=== PATIENT | male | born 1990 | race Caucasian/White ===

== ENCOUNTER 2019-11-01 10:53 | Inpatient (IN) | payer MEDICAID ==
[2019-11-01] MEDS ORDERED: Furosemide 40 MG/4 ML VIAL IV ONE (11:05)
[2019-11-01] MEDS ORDERED: Aspirin 81 MG Tab.Chew PO ONE (11:08)
[2019-11-01] MEDS ORDERED: Albuterol/Ipratropium 3.0-0.5 MG/3 ML Neb Soln NEB ONE (11:14)
[2019-11-01] MEDS ORDERED: Nitroglycerin 0.4 MG Tab.SL SL ONE (11:22)
[2019-11-01] MEDS ORDERED: Albuterol 0.083% 2.5 MG/3 ML Neb Soln NEB ONE (11:42)
--- NOTE | 2019-11-01 11:42 | EDM.PDOC ---
ED HPI GENERAL MEDICAL PROBLEM - General Stated Complaint: SWELLING AND CHEST PAIN Time Seen by Provider: 11/01/19 11:00 Source of Information: Reports: Patient History Limitations: Reports: No Limitations - History of Present Illness INITIAL COMMENTS - FREE TEXT/NARRATIVE: Pt. presents to ER from clinic. He was sent here due to severity of symptoms. Pt. complains of increased peripheral edema and shortness of breath. He also complains of chest heaviness. He states that he had been experiencing the symptoms for about a month. He has a history of poorly controlled hypertension, alcohol abuse, asthma, and congestive heart failure. He states that he has not been experiencing any fever or chills. He states that he has been taking his lisinopril for his hypertension, but not the amlodipine because it causes his legs to swell. He was also prescribed lasix to take as needed for weight gain, edema or shortness of breath, but states that he has not taken this. Also, he states that he has been out of his inhalers for his asthma and has not been taking them either. Pt. had a echocardiogram ([facility]) on 08/16/2018 which showed concentric LVH and grade 1 left ventricular dysfunction with EF of 55%. He states that he drinks half of a 1.75 of hard alcohol a day, and states that he has DTs if he does not drink. Onset Date: 10/11/19 Location: Reports: Chest, Generalized Severity: Moderate Associated Symptoms: Reports: Chest Pain, Shortness of Breath. Denies: Diaphoresis, Fever/Chills Chest Pain Score (Numeric/FACES): 3 - Related Data Allergies Allergy/AdvReac Type Severity Reaction Status Date / Time No Known Allergies Allergy Verified 11/01/19 11:02 ED ROS GENERAL - Review of Systems Review Of Systems: See Below Constitutional: Reports: Fatigue. Denies: Fever, Chills HEENT: Reports: No Symptoms Respiratory: Reports: Shortness of Breath. Denies: Cough Cardiovascular: Reports: Chest Pain, Dyspnea on Exertion, Edema, Orthopnea. Denies: Palpitations Endocrine: Reports: No Symptoms GI/Abdominal: Reports: No Symptoms : Reports: No Symptoms Musculoskeletal: Reports: No Symptoms Skin: Reports: No Symptoms Neurological: Reports: No Symptoms Psychiatric: Reports: No Symptoms Hematologic/Lymphatic: Reports: No Symptoms Immunologic: Reports: No Symptoms ED EXAM, GENERAL - Physical Exam Exam: See Below Exam Limited By: No Limitations General Appearance: Alert, WD/WN, No Apparent Distress Eye Exam: Bilateral Eye: EOMI, PERRL Throat/Mouth: Normal Inspection, Normal Lips, Normal Teeth, Normal Gums, Normal Oropharynx, Normal Voice, No Airway Compromise Head: Atraumatic, Normocephalic Respiratory/Chest: Decreased Breath Sounds, Crackles, Wheezing Cardiovascular: Normal Peripheral Pulses, No Rub Course - Vital Signs Last Recorded V/S: Last Vital Signs Temp 37.0 C 11/01/19 11:00 Pulse 122 H 11/01/19 11:00 Resp 24 H 11/01/19 11:00 BP 165/100 H 11/01/19 11:59 Pulse Ox 95 11/01/19 11:00 - Orders/Labs/Meds Orders: Active Orders 24 hr Category Date Time Status Patient Status [ADT] Routine ADT 11/01/19 12:31 Ordered EKG Documentation Completion [RC] STAT Care 11/01/19 11:02 Active RT Aerosol Therapy [RC] ASDIRECTED Care 11/01/19 11:14 Active RT Aerosol Therapy [RC] ASDIRECTED Care 11/01/19 11:42 Active CULTURE BLOOD [BC] Stat Lab 11/01/19 11:12 Received CULTURE BLOOD [BC] Stat Lab 11/01/19 11:18 Received LORazepam [Ativan] Med 11/01/19 12:33 Once 1 mg IVPUSH STAT ONE Sodium Chloride 0.9% [Saline Flush] Med 11/01/19 11:02 Active 10 ml FLUSH ASDIRECTED PRN Blood Culture x2 Reflex Set [OM.PC] Stat Oth 11/01/19 11:03 Ordered Peripheral IV Insertion Adult [OM.PC] Routine Oth 11/01/19 11:03 Ordered Medication Orders Sodium Chloride (Saline Flush) 10 ml FLUSH ASDIRECTED PRN PRN Reason: Keep Vein Open Labs: Laboratory Tests 11/01/19 11/01/19 11/01/19 Range/Units 11:09 11:09 11:09 WBC 7.9 (4.0-10.0) x10^3/uL RBC 5.58 (4.5-6.0) x10^6/uL Hgb 16.1 (14.0-18.0) g/dL Hct 48.6 (40.0-52.0) % MCV 87.1 (78.0-93.0) fL MCH 28.9 (26.0-32.0) pg MCHC 33.1 (32.0-36.0) g/dL RDW Coeff of Kb 15.6 H (10.0-15.0) % Plt Count 215 (130-400) x10^3/uL Neut % (Auto) 65.3 (50.0-80.0) % Lymph % (Auto) 26.7 (25.0-50.0) % [place] % (Auto) 5.5 (2.0-11.0) % Eos % (Auto) 2.2 (0.0-4.0) % Baso % (Auto) 0.3 (0.2-1.2) % PT 10.3 (10.0-12.8) SEC INR 0.9 L (2.0-3.5) D-Dimer, Quantitative (<=0.58) mg/LFEU Sodium 135 L (136-145) mmol/L Potassium 4.3 (3.5-5.1) mmol/L Chloride 99 (98-107) mmol/L Carbon Dioxide 25 (21-32) mmol/L Anion Gap 15.3 (10-20) mmol/L BUN 9 (7-18) mg/dL Creatinine 1.0 (0.70-1.30) mg/dL Est Cr Clr Drug Dosing TNP Estimated GFR (MDRD) > 60 Glucose 98 (74-106) mg/dL Lactic Acid (0.4-2.0) mmol/L Calcium 8.8 (8.5-10.1) mg/dL Corrected Calcium 9.12 (8.5-10.1) mg/dL Magnesium 1.7 L (1.8-2.4) mg/dL Total Bilirubin 0.6 (0.2-1.0) mg/dL AST 65 H (15-37) U/L ALT 78 H (16-63) U/L Alkaline Phosphatase 106 (46-116) U/L Troponin I 0.051 (<=0.056) ng/mL C-Reactive Protein 1.5 H (<=0.9) mg/dL NT-Pro-B Natriuret Pep 111 (<=125) pg/mL Total Protein 8.3 H (6.4-8.2) g/dL Albumin 3.6 (3.4-5.0) g/dL Globulin 4.7 Albumin/Globulin Ratio 0.77 Urine Color (YELLOW) Urine Appearance (CLEAR) Urine pH (5.0-8.0) Ur Specific [place] Urine Protein (NEGATIVE) mg/dL Urine Glucose (UA) (NEGATIVE) mg/dL Urine Ketones (NEGATIVE) mg/dL Urine Occult Blood (NEGATIVE) Urine Nitrite (NEGATIVE) Urine Bilirubin (NEGATIVE) Urine Urobilinogen (0.2) EU/dL Ur Leukocyte Esterase (NEGATIVE) Urine RBC (NOT SEEN) /HPF Urine WBC (NOT SEEN) /HPF Ur Squamous Epith Cells (NEGATIVE) /HPF Urine Bacteria (NEGATIVE) /HPF Urine Mucus (NEGATIVE) /LPF 11/01/19 11/01/19 11/01/19 Range/Units 11:09 11:12 11:38 WBC (4.0-10.0) x10^3/uL RBC (4.5-6.0) x10^6/uL Hgb (14.0-18.0) g/dL Hct (40.0-52.0) % MCV (78.0-93.0) fL MCH (26.0-32.0) pg MCHC (32.0-36.0) g/dL RDW Coeff of Kb (10.0-15.0) % Plt Count (130-400) x10^3/uL Neut % (Auto) (50.0-80.0) % Lymph % (Auto) (25.0-50.0) % [place] % (Auto) (2.0-11.0) % Eos % (Auto) (0.0-4.0) % Baso % (Auto) (0.2-1.2) % PT (10.0-12.8) SEC INR (2.0-3.5) D-Dimer, Quantitative 0.21 (<=0.58) mg/LFEU Sodium (136-145) mmol/L Potassium (3.5-5.1) mmol/L Chloride (98-107) mmol/L Carbon Dioxide (21-32) mmol/L Anion Gap (10-20) mmol/L BUN (7-18) mg/dL Creatinine (0.70-1.30) mg/dL Est Cr Clr Drug Dosing Estimated GFR (MDRD) Glucose (74-106) mg/dL Lactic Acid 1.4 (0.4-2.0) mmol/L Calcium (8.5-10.1) mg/dL Corrected Calcium (8.5-10.1) mg/dL Magnesium (1.8-2.4) mg/dL Total Bilirubin (0.2-1.0) mg/dL AST (15-37) U/L ALT (16-63) U/L Alkaline Phosphatase (46-116) U/L Troponin I (<=0.056) ng/mL C-Reactive Protein (<=0.9) mg/dL NT-Pro-B Natriuret Pep (<=125) pg/mL Total Protein (6.4-8.2) g/dL Albumin (3.4-5.0) g/dL Globulin Albumin/Globulin Ratio Urine Color Yellow (YELLOW) Urine Appearance Slightly cloudy H (CLEAR) Urine pH 7.0 (5.0-8.0) Ur Specific [place] 1.020 Urine Protein 100 H (NEGATIVE) mg/dL Urine Glucose (UA) Negative (NEGATIVE) mg/dL Urine Ketones Negative (NEGATIVE) mg/dL Urine Occult Blood Negative (NEGATIVE) Urine Nitrite Negative (NEGATIVE) Urine Bilirubin Negative (NEGATIVE) Urine Urobilinogen 0.2 (0.2) EU/dL Ur Leukocyte Esterase Negative (NEGATIVE) Urine RBC 0-5 (NOT SEEN) /HPF Urine WBC 0-5 (NOT SEEN) /HPF Ur Squamous Epith Cells Not seen (NEGATIVE) /HPF Urine Bacteria Rare (NEGATIVE) /HPF Urine Mucus Few H (NEGATIVE) /LPF Meds: Medications Generic Name Dose Route Start Last Admin Trade Name Freq PRN Reason Stop Dose Admin Sodium Chloride 10 ml 11/01/19 11:02 Saline Flush FLUSH ASDIRECTED PRN Keep Vein Open Discontinued Medications Generic Name Dose Route Start Last Admin Trade Name Freq PRN Reason Stop Dose Admin Albuterol 2.5 mg 11/01/19 11:42 11/01/19 11:49 Proventil Neb Soln NEB 11/01/19 11:43 2.5 mg ONETIME ONE Administration Albuterol/Ipratropium 3 ml 11/01/19 11:14 11/01/19 11:00 Duoneb 3.0-0.5 Mg/3 Ml NEB 11/01/19 11:15 3 ml ONETIME ONE Administration Aspirin 324 mg 11/01/19 11:08 11/01/19 11:13 Aspirin PO 11/01/19 11:09 324 mg ONETIME ONE Administration Furosemide 40 mg 11/01/19 11:05 11/01/19 11:13 Lasix IV 11/01/19 11:06 40 mg ONETIME ONE Administration Methylprednisolone Sodium Succinate 125 mg 11/01/19 12:32 Solu-Medrol IV 11/01/19 12:33 ONETIME ONE Nitroglycerin 0.4 mg 11/01/19 11:22 11/01/19 11:35 Nitrostat SL 11/01/19 11:23 0.4 mg ONETIME ONE Administration - Radiology Interpretation Free Text/Narrative:: Negative. No significant CHF, infiltrate, or other pathology noted. Departure - Departure Time of Disposition: 12:34 Disposition: Admitted As Inpatient 68 Clinical Impression: CHF (congestive heart failure), Asthma exacerbation, Alcohol abuse - Discharge Information Referrals: PCP,None [Primary Care Provider] - Sepsis Event Note - Focused Exam Vital Signs: Vital Signs Temp Pulse Resp BP BP Pulse Ox 11/01/19 11:59 165/100 H 11/01/19 11:35 182/128 H 11/01/19 11:00 37.0 C 122 H 24 H 197/123 H 95 Date Exam was Performed: 11/01/19 Time Exam was Performed: 12:33 - Problem List Review Problem List Initiated/Reviewed/Updated: Yes - My Orders Last 24 Hours: My Active Orders 11/01/19 11:02 EKG Documentation Completion [RC] STAT Sodium Chloride 0.9% [Saline Flush] 10 ml FLUSH ASDIRECTED PRN 11/01/19 11:03 Blood Culture x2 Reflex Set [OM.PC] Stat Peripheral IV Insertion Adult [OM.PC] Routine 11/01/19 11:12 CULTURE BLOOD [BC] Stat 11/01/19 11:14 RT Aerosol Therapy [RC] ASDIRECTED 11/01/19 11:18 CULTURE BLOOD [BC] Stat 11/01/19 11:42 RT Aerosol Therapy [RC] ASDIRECTED 11/01/19 12:31 Patient Status [ADT] Routine 11/01/19 12:33 LORazepam [Ativan] 1 mg IVPUSH STAT ONE - Assessment/Plan Last 24 Hours: My Active Orders 11/01/19 11:02 EKG Documentation Completion [RC] STAT Sodium Chloride 0.9% [Saline Flush] 10 ml FLUSH ASDIRECTED PRN 11/01/19 11:03 Blood Culture x2 Reflex Set [OM.PC] Stat Peripheral IV Insertion Adult [OM.PC] Routine 11/01/19 11:12 CULTURE BLOOD [BC] Stat 11/01/19 11:14 RT Aerosol Therapy [RC] ASDIRECTED 11/01/19 11:18 CULTURE BLOOD [BC] Stat 11/01/19 11:42 RT Aerosol Therapy [RC] ASDIRECTED 11/01/19 12:31 Patient Status [ADT] Routine 11/01/19 12:33 LORazepam [Ativan] 1 mg IVPUSH STAT ONE Plan: Pt. was given nitro 0.4mg IV and lasix 40mg IV. He was given 1 duoneb on admission and albuterol 2.5mg via neb during his stay in ER. He will be given solu medrol 125mg IV. His CIWAA score was 12 on arrival. He is being given ativan 1 mg IV. Discussed case with Dr. Bonner, strap maker at [facility]. She advises that the patient be admitted to our facility, and stated that he can have a repeat echo as an outpatient. It appears that the patient's symptoms are multifactorial. There does not appear to be any pneumonia or other infectious process contributing to the dyspnea. I did speak with Dr. Dos Santos who will follow the patient acutely on the floor. Discussed findings with patient. He has just moved to [place] and does not have a PCP at this time. All questions were answered.
[2019-11-01 11:45] LABS: CHLORIDE,CL 99 mmol/L (98-107); SODIUM,NA 135 mmol/L (136-145)
[2019-11-01 11:46] LABS: ANION GAP 15.3 mmol/L (10-20)
--- NOTE | 2019-11-01 12:14 | CR ---
[id number] RAD/RAD Chest PA or AP 1V EXAM: RAD Chest PA or AP 1V INDICATION: SHORTNESS OF BREATH. COMPARISON: None. DISCUSSION: Cardiomediastinal silhouette is normal in size and contour. No infiltrate, effusion, pneumothorax, or edema. IMPRESSION: No significant cardiopulmonary abnormality. Lambert Finnegan DO 11/01/19 1212 Thank you for allowing us to participate in the care of your patient.
[2019-11-01] MEDS ORDERED: methylPREDNISolone Sodium Succinate 125 MG/2 ML SDV IV ONE (12:32)
[2019-11-01] MEDS ORDERED: LORazepam 2 MG/ML SDV IVPUSH ONE (12:33)
[2019-11-01 12:56] LABS: BARBITURATE SCREEN,URINE NEGATIVE (NEGATIVE); BENZODIAZEPINES SCREEN,URINE NEGATIVE (NEGATIVE); EDDP,URINE SCREEN NEGATIVE (NEGATIVE); METHAMPHETAMINE SCREEN, URINE NEGATIVE (NEGATIVE); TCA SCREEN,URINE POSITIVE (NEGATIVE); THC SCREEN,URINE 50 NG/ML NEGATIVE (NEGATIVE)
--- NOTE | 2019-11-01 14:39 | PCM.HP.2 ---
H&P History of Present Illness - General Date of Service: 11/01/19 Admit Problem/Dx: Admission Diagnosis/Problem Admission Diagnosis/Problem CHF, Congestive heart failure Chief complaint: Alcohol dependence Present illness: Patient states he came in today because of inability to quit drinking. He is worried about going through severe withdrawals. He is generally drinking a liter of vodka daily. States he'll get severe shakes and sweaty if he tries stopping. He's been drinking this much for a number of years now. Denies any history of seizures. Denies being on any medicine for alcohol. He doesn't feel like he has any depression or anxiety issues at baseline. He denies a lot of psychological craving, more year of physical withdrawal symptoms at this time. He is currently working at [employer]. He notes his blood pressures been quite high in the past month or longer. He still takes lisinopril but avoids amlodipine as it makes his peripheral edema worse. Denies any angina. Appears to have mild asthma at baseline, hasn't been using inhalers as much lately as the Symbicort is expensive. Maybe using albuterol once daily. No severe asthma flares in the past. 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 In the past he has CHF admission, last echocardiogram was pretty normal regarding left ventricular function. BNP was normal today. Chest x-ray shows no pulmonary edema. White count and CRP fairly unremarkable, no pneumonitis by chest x-ray. Past medical history: Nicotine dependence, alcohol dependence, marijuana abuse, hypertension, morbid obesity, possible sleep apnea, mild glucose intolerance, mild left ventricular dysfunction, mild asthma. Social hx per above. FH CHF in dad, unsure of CAD. Review of systems: Denies fever denies cough denies angina does describe some shortness of breath. HPI, denies abdominal pain nausea or vomiting, does endorse some mild anxiety and shakes per HPI. Denies any self harming ideation. Endorses mild peripheral edema. physical exam: Oxygen saturation 97% on room air, blood pressure 160/100, pulse 110, afebrile. Alert oriented slouched in bed watching TV no acute distress. Pleasant and cooperative, mood is euthymic, eye contact is good, focused on wanting to address health issues primarily alcohol and blood pressure. Heart reveals fast rate with regular rhythm, no murmurs rubs or gallops. Lungs are clear to auscultation, abdomen soft obese nontender. 1+ pitting edema bilaterally. Assessment and plan: #1. Alcohol dependence. He has continued use mainly because of physical dependence which causes with rales. CIWA w/ PRN ativan. Banana bag. Consult SW for tx options at d/c. #2. Uncontrolled HTN. primarily would seem to be secondary to his etoh dependence and noncompliant with amlodipine because of worsening peripheral edema. Continue max dose lisinopril. We will add hydrochlorothiazide. Morbid obesity and probable sleep apnea would be other contributing factors. #3. Mild dyspnea w/ normal CXR, BNP, WBC and last echo. Likely secondary to above 2 issues. Observe for now. Chest Pain Score (Numeric/FACES): 3 - Related Data Allergies/Adverse Reactions: Allergies Allergy/AdvReac Type Severity Reaction Status Date / Time No Known Allergies Allergy Verified 11/01/19 11:02 Home Medications: Home Meds Furosemide 20 mg PO BID PRN 11/01/19 [History] lisinopriL [Lisinopril] 40 mg PO DAILY 11/01/19 [History] Past Medical History HEENT History: Reports: Allergic Rhinitis Cardiovascular History: Reports: Heart Failure, Hypertension Respiratory History: Reports: Asthma, Other (See Below) Other Respiratory History: repiratory failure Psychiatric History: Reports: Depression, Other (See Below) Other Psychiatric History: nonpsychotic mental disorder Social & Family History - Family History Family Medical History: Noncontributory - Tobacco Use Smoking Status *Q: Current Every Day Smoker Years of Tobacco use: 12 Packs/Tins Daily: 0.2 - Alcohol Use Days Per Week of Alcohol Use: 7 Number of Drinks Per Day: 5 Total Drinks Per Week: 35 - Recreational Drug Use Recreational Drug Use: Yes Drug Use in Last 12 Months: Yes Recreational Drug Type: Reports: Marijuana/Hashish Recreational Drug Use Frequency: Rarely H&P Review of Systems - Review of Systems: Review Of Systems: See Below Exam - Exam Exam: See Below - Vital Signs Vital Signs: Last Vital Signs Temp 36.4 C 11/01/19 12:51 Pulse 114 H 11/01/19 12:51 Resp 20 11/01/19 12:51 BP 154/109 H 11/01/19 12:51 Pulse Ox 97 04/22/20 12:51 Weight: 137.529 kg - Patient Data Lab Results Last 24 hrs: Laboratory Results - last 24 hr 11/01/19 11/01/19 11/01/19 Range/Units 11:09 11:09 11:09 WBC 7.9 (4.0-10.0) x10^3/uL RBC 5.58 (4.5-6.0) x10^6/uL Hgb 16.1 (14.0-18.0) g/dL Hct 48.6 (40.0-52.0) % MCV 87.1 (78.0-93.0) fL MCH 28.9 (26.0-32.0) pg MCHC 33.1 (32.0-36.0) g/dL RDW Coeff of Kb 15.6 H (10.0-15.0) % Plt Count 215 (130-400) x10^3/uL Neut % (Auto) 65.3 (50.0-80.0) % Lymph % (Auto) 26.7 (25.0-50.0) % [place] % (Auto) 5.5 (2.0-11.0) % Eos % (Auto) 2.2 (0.0-4.0) % Baso % (Auto) 0.3 (0.2-1.2) % PT 10.3 (10.0-12.8) SEC INR 0.9 L (2.0-3.5) D-Dimer, Quantitative (<=0.58) mg/LFEU Sodium 135 L (136-145) mmol/L Potassium 4.3 (3.5-5.1) mmol/L Chloride 99 (98-107) mmol/L Carbon Dioxide 25 (21-32) mmol/L Anion Gap 15.3 (10-20) mmol/L BUN 9 (7-18) mg/dL Creatinine 1.0 (0.70-1.30) mg/dL Est Cr Clr Drug Dosing TNP Estimated GFR (MDRD) > 60 Glucose 98 (74-106) mg/dL Lactic Acid (0.4-2.0) mmol/L Calcium 8.8 (8.5-10.1) mg/dL Corrected Calcium 9.12 (8.5-10.1) mg/dL Magnesium 1.7 L (1.8-2.4) mg/dL Total Bilirubin 0.6 (0.2-1.0) mg/dL AST 65 H (15-37) U/L ALT 78 H (16-63) U/L Alkaline Phosphatase 106 (46-116) U/L Troponin I 0.051 (<=0.056) ng/mL C-Reactive Protein 1.5 H (<=0.9) mg/dL NT-Pro-B Natriuret Pep 111 (<=125) pg/mL Total Protein 8.3 H (6.4-8.2) g/dL Albumin 3.6 (3.4-5.0) g/dL Globulin 4.7 Albumin/Globulin Ratio 0.77 Urine Color (YELLOW) Urine Appearance (CLEAR) Urine pH (5.0-8.0) Ur Specific [place] Urine Protein (NEGATIVE) mg/dL Urine Glucose (UA) (NEGATIVE) mg/dL Urine Ketones (NEGATIVE) mg/dL Urine Occult Blood (NEGATIVE) Urine Nitrite (NEGATIVE) Urine Bilirubin (NEGATIVE) Urine Urobilinogen (0.2) EU/dL Ur Leukocyte Esterase (NEGATIVE) Urine RBC (NOT SEEN) /HPF Urine WBC (NOT SEEN) /HPF Ur Squamous Epith Cells (NEGATIVE) /HPF Urine Bacteria (NEGATIVE) /HPF Urine Mucus (NEGATIVE) /LPF Urine Opiates Screen (NEAGTIVE) Ur Buprenorphine Scrn (NEGATIVE) Ur Oxycodone Screen (NEGATIVE) Ur EDDP (Meth Metab) (NEGATIVE) Urine Methadone Screen (NEGATIVE) Ur Barbiturates Screen (NEGATIVE) Ur Tricyclics Screen (NEGATIVE) Ur Phencyclidine Scrn (NEGATIVE) Ur Amphetamine Screen (NEGATIVE) U Methamphetamines Scrn (NEGATIVE) Urine MDMA Screen (NEGATIVE) U Benzodiazepines Scrn (NEGATIVE) U Cocaine Metab Screen (NEGATIVE) U Marijuana (THC) Screen (NEGATIVE) 11/01/19 11/01/19 11/01/19 Range/Units 11:09 11:12 11:38 WBC (4.0-10.0) x10^3/uL RBC (4.5-6.0) x10^6/uL Hgb (14.0-18.0) g/dL Hct (40.0-52.0) % MCV (78.0-93.0) fL MCH (26.0-32.0) pg MCHC (32.0-36.0) g/dL RDW Coeff of Kb (10.0-15.0) % Plt Count (130-400) x10^3/uL Neut % (Auto) (50.0-80.0) % Lymph % (Auto) (25.0-50.0) % [place] % (Auto) (2.0-11.0) % Eos % (Auto) (0.0-4.0) % Baso % (Auto) (0.2-1.2) % PT (10.0-12.8) SEC INR (2.0-3.5) D-Dimer, Quantitative 0.21 (<=0.58) mg/LFEU Sodium (136-145) mmol/L Potassium (3.5-5.1) mmol/L Chloride (98-107) mmol/L Carbon Dioxide (21-32) mmol/L Anion Gap (10-20) mmol/L BUN (7-18) mg/dL Creatinine (0.70-1.30) mg/dL Est Cr Clr Drug Dosing Estimated GFR (MDRD) Glucose (74-106) mg/dL Lactic Acid 1.4 (0.4-2.0) mmol/L Calcium (8.5-10.1) mg/dL Corrected Calcium (8.5-10.1) mg/dL Magnesium (1.8-2.4) mg/dL Total Bilirubin (0.2-1.0) mg/dL AST (15-37) U/L ALT (16-63) U/L Alkaline Phosphatase (46-116) U/L Troponin I (<=0.056) ng/mL C-Reactive Protein (<=0.9) mg/dL NT-Pro-B Natriuret Pep (<=125) pg/mL Total Protein (6.4-8.2) g/dL Albumin (3.4-5.0) g/dL Globulin Albumin/Globulin Ratio Urine Color Yellow (YELLOW) Urine Appearance Slightly cloudy H (CLEAR) Urine pH 7.0 (5.0-8.0) Ur Specific [place] 1.020 Urine Protein 100 H (NEGATIVE) mg/dL Urine Glucose (UA) Negative (NEGATIVE) mg/dL Urine Ketones Negative (NEGATIVE) mg/dL Urine Occult Blood Negative (NEGATIVE) Urine Nitrite Negative (NEGATIVE) Urine Bilirubin Negative (NEGATIVE) Urine Urobilinogen 0.2 (0.2) EU/dL Ur Leukocyte Esterase Negative (NEGATIVE) Urine RBC 0-5 (NOT SEEN) /HPF Urine WBC 0-5 (NOT SEEN) /HPF Ur Squamous Epith Cells Not seen (NEGATIVE) /HPF Urine Bacteria Rare (NEGATIVE) /HPF Urine Mucus Few H (NEGATIVE) /LPF Urine Opiates Screen (NEAGTIVE) Ur Buprenorphine Scrn (NEGATIVE) Ur Oxycodone Screen (NEGATIVE) Ur EDDP (Meth Metab) (NEGATIVE) Urine Methadone Screen (NEGATIVE) Ur Barbiturates Screen (NEGATIVE) Ur Tricyclics Screen (NEGATIVE) Ur Phencyclidine Scrn (NEGATIVE) Ur Amphetamine Screen (NEGATIVE) U Methamphetamines Scrn (NEGATIVE) Urine MDMA Screen (NEGATIVE) U Benzodiazepines Scrn (NEGATIVE) U Cocaine Metab Screen (NEGATIVE) U Marijuana (THC) Screen (NEGATIVE) 11/01/19 Range/Units 12:35 WBC (4.0-10.0) x10^3/uL RBC (4.5-6.0) x10^6/uL Hgb (14.0-18.0) g/dL Hct (40.0-52.0) % MCV (78.0-93.0) fL MCH (26.0-32.0) pg MCHC (32.0-36.0) g/dL RDW Coeff of Kb (10.0-15.0) % Plt Count (130-400) x10^3/uL Neut % (Auto) (50.0-80.0) % Lymph % (Auto) (25.0-50.0) % [place] % (Auto) (2.0-11.0) % Eos % (Auto) (0.0-4.0) % Baso % (Auto) (0.2-1.2) % PT (10.0-12.8) SEC INR (2.0-3.5) D-Dimer, Quantitative (<=0.58) mg/LFEU Sodium (136-145) mmol/L Potassium (3.5-5.1) mmol/L Chloride (98-107) mmol/L Carbon Dioxide (21-32) mmol/L Anion Gap (10-20) mmol/L BUN (7-18) mg/dL Creatinine (0.70-1.30) mg/dL Est Cr Clr Drug Dosing Estimated GFR (MDRD) Glucose (74-106) mg/dL Lactic Acid (0.4-2.0) mmol/L Calcium (8.5-10.1) mg/dL Corrected Calcium (8.5-10.1) mg/dL Magnesium (1.8-2.4) mg/dL Total Bilirubin (0.2-1.0) mg/dL AST (15-37) U/L ALT (16-63) U/L Alkaline Phosphatase (46-116) U/L Troponin I (<=0.056) ng/mL C-Reactive Protein (<=0.9) mg/dL NT-Pro-B Natriuret Pep (<=125) pg/mL Total Protein (6.4-8.2) g/dL Albumin (3.4-5.0) g/dL Globulin Albumin/Globulin Ratio Urine Color (YELLOW) Urine Appearance (CLEAR) Urine pH (5.0-8.0) Ur Specific [place] Urine Protein (NEGATIVE) mg/dL Urine Glucose (UA) (NEGATIVE) mg/dL Urine Ketones (NEGATIVE) mg/dL Urine Occult Blood (NEGATIVE) Urine Nitrite (NEGATIVE) Urine Bilirubin (NEGATIVE) Urine Urobilinogen (0.2) EU/dL Ur Leukocyte Esterase (NEGATIVE) Urine RBC (NOT SEEN) /HPF Urine WBC (NOT SEEN) /HPF Ur Squamous Epith Cells (NEGATIVE) /HPF Urine Bacteria (NEGATIVE) /HPF Urine Mucus (NEGATIVE) /LPF Urine Opiates Screen Negative (NEAGTIVE) Ur Buprenorphine Scrn Negative (NEGATIVE) Ur Oxycodone Screen Negative (NEGATIVE) Ur EDDP (Meth Metab) Negative (NEGATIVE) Urine Methadone Screen Negative (NEGATIVE) Ur Barbiturates Screen Negative (NEGATIVE) Ur Tricyclics Screen Positive H (NEGATIVE) Ur Phencyclidine Scrn Negative (NEGATIVE) Ur Amphetamine Screen Negative (NEGATIVE) U Methamphetamines Scrn Negative (NEGATIVE) Urine MDMA Screen Negative (NEGATIVE) U Benzodiazepines Scrn Negative (NEGATIVE) U Cocaine Metab Screen Negative (NEGATIVE) U Marijuana (THC) Screen Negative (NEGATIVE) Result Diagrams: 11/01/19 11:09 11/01/19 11:09 Sepsis Event Note - Evaluation Sepsis Screening Result: No Definite Risk - Focused Exam Vital Signs: Vital Signs Temp Temp Pulse Resp BP BP Pulse Ox 11/01/19 12:51 36.4 C 114 H 20 154/109 H 97 11/01/19 12:41 112 H 18 159/95 H 93 L 11/01/19 11:59 165/100 H 11/01/19 11:38 118 H 18 169/110 H 95 11/01/19 11:35 182/128 H 11/01/19 11:20 106 H 18 182/128 H 94 L 11/01/19 11:00 37.0 C 122 H 24 H 197/123 H 95 Date Exam was Performed: 11/01/19 Time Exam was Performed: 14:30 Problem List Initiated/Reviewed/Updated: Yes Orders Last 24hrs: Active Orders 24 hr Category Date Time Status Patient Status [ADT] Routine ADT 11/01/19 12:31 Active RT Peak Flow Measurement [RC] ASDIRECTED Care 11/01/19 12:49 Active CULTURE BLOOD [BC] Stat Lab 11/01/19 11:12 Received CULTURE BLOOD [BC] Stat Lab 11/01/19 11:18 Received GGT [REF] Stat Lab 11/01/19 11:09 Received Sodium Chloride 0.9% [Saline Flush] Med 11/01/19 11:02 Active 10 ml FLUSH ASDIRECTED PRN Blood Culture x2 Reflex Set [OM.PC] Stat Oth 11/01/19 11:03 Ordered Peripheral IV Insertion Adult [OM.PC] Routine Oth 11/01/19 11:03 Ordered Medication Orders Sodium Chloride (Saline Flush) 10 ml FLUSH ASDIRECTED PRN PRN Reason: Keep Vein Open
[2019-11-01] MEDS ORDERED: Ondansetron 4 MG/2 ML SDV IV PRN (14:43)
[2019-11-01] MEDS ORDERED: Acetaminophen 325 MG Tab PO PRN (14:43)
[2019-11-01] MEDS ORDERED: Albuterol HFA 18 Gm Inhaler INH PRN (14:46)
[2019-11-01] MEDS: Lactated Ringers 1,000 ML IV SCH (15:44)
[2019-11-01] MEDS: Hydrochlorothiazide 25 MG Tab PO SCH (15:45)
[2019-11-01] MEDS: LORazepam 2 MG/ML SDV IVPUSH PRN ×2 (15:46→22:13)
[2019-11-01] MEDS: Thiamine 200 MG/2 ML MDV IV SCH (15:46)
[2019-11-01] MEDS: Folic Acid 1 MG Tab PO SCH (15:46)
[2019-11-01] MEDS: Lisinopril 20 MG Tab PO SCH (15:46)
[2019-11-01] MEDS: Multivitamins with Iron/Calcium/Folic Acid/Minerals Tab PO SCH (15:46)
[2019-11-01] MEDS: Sodium Chloride 0.9% 10 ML Syringe FLUSH PRN (22:15)
[2019-11-02] MEDS: LORazepam 2 MG/ML SDV IVPUSH PRN ×3 (02:48→21:04)
[2019-11-02] MEDS: Sodium Chloride 0.9% 10 ML Syringe FLUSH PRN ×2 (02:48→21:05)
[2019-11-02] MEDS: Lactated Ringers 1,000 ML IV SCH (04:57)
[2019-11-02 06:58] LABS: CHLORIDE,CL 97 mmol/L (98-107); SODIUM,NA 136 mmol/L (136-145)
[2019-11-02 07:02] LABS: ANION GAP 17.5 mmol/L (10-20)
[2019-11-02] MEDS: Thiamine 200 MG/2 ML MDV IV SCH (07:40)
[2019-11-02] MEDS: Lisinopril 20 MG Tab PO SCH (07:40)
[2019-11-02] MEDS: Multivitamins with Iron/Calcium/Folic Acid/Minerals Tab PO SCH (07:40)
[2019-11-02] MEDS: Folic Acid 1 MG Tab PO SCH (07:40)
[2019-11-02] MEDS: Hydrochlorothiazide 25 MG Tab PO SCH (07:40)
[2019-11-02] MEDS ORDERED: Folic Acid 50 MG/10 ML Bulk Vial IV SCH (08:00)
[2019-11-02] MEDS ORDERED: MVI, Adult with Vitamin K 10 ML SDV IV SCH (08:00)
[2019-11-02] MEDS ORDERED: Carvedilol 12.5 MG Tab PO SCH (08:30)
--- NOTE | 2019-11-02 09:42 | PCM.PN ---
- General Info Date of Service: 11/02/19 Subjective Update: Subjective: Patient was admitted yesterday for hypertension, alcohol dependence and withdrawal. Hydrothiazide was added, blood pressure remaining a bit high. He remains a bit shaky. Got Ativan twice last night, some relief but didn't last too long. Has not seen bilingual social worker yet to discuss alcohol treatment. Objective: Alert oriented male no acute distress sitting comfortably slouched in bed. Mild tremor to hands. Pulse 115, heart and lungs clear to auscultation , blood pressure 143/104, afebrile and normoxic. Trace pitting peripheral edema bilaterally. Abdomen soft nontender Assessment and plan: Alcohol dependence and withdrawal. We'll try to liberalize Ativan a little bit especially at nights so we can get some rest. child welfare caseworker to meet today to discuss long-term treatment plan. Possible discharge in a.m. Blood pressure remains high on lisinopril plus hydrochlorothiazide, generally on max dose. We will add Coreg next, likely hyperadrenergic from his alcohol withdrawal. I suspect blood pressure runs chronically high from morbid obesity and alcohol use as well. Suspect underlying sleep apnea, suggest following up with sleep clinic as outpatient. Unclear how much anxiety or depression he has at baseline. Probably needs something for sleep at discharge, may be longer acting benzo-like Ativan or Librium versus non-benzo like trazodone. No sign of any brigida CHF by BNP, chest x-ray or clinically. Main issues to get long-term blood pressure under control. Recommended agents given his past history of mild CHF would be ALEN inhibitor beta nisha and a little bit of a diuretic as he is on. Norvasc stopped as was causing edema. His asthma appears mild to me, can use albuterol as needed, if insurance will pay for he probably could resume Symbicort, increasingly this medicine is being used on as-needed basis as well. I don't see any contraindication to beta nisha currently. Does need to work on smoking cessation the future. - Patient Data Vitals - Most Recent: Last Vital Signs Temp 36.6 C 11/02/19 06:00 Pulse 118 H 11/02/19 09:17 Resp 19 11/02/19 06:00 BP 143/106 H 11/02/19 09:17 Pulse Ox 93 L 11/02/19 06:00 Weight - Most Recent: 136.078 kg I&O - Last 24 Hours: Intake & Output 11/01/19 11/02/19 11/02/19 22:59 06:59 14:59 Intake Total 192 988 420 Output Total 300 Balance 192 988 120 Lab Results Last 24 Hours: Laboratory Results - last 24 hr 11/01/19 11/01/19 11/01/19 Range/Units 11:09 11:09 11:09 WBC 7.9 (4.0-10.0) x10^3/uL RBC 5.58 (4.5-6.0) x10^6/uL Hgb 16.1 (14.0-18.0) g/dL Hct 48.6 (40.0-52.0) % MCV 87.1 (78.0-93.0) fL MCH 28.9 (26.0-32.0) pg MCHC 33.1 (32.0-36.0) g/dL RDW Coeff of Kb 15.6 H (10.0-15.0) % Plt Count 215 (130-400) x10^3/uL Neut % (Auto) 65.3 (50.0-80.0) % Lymph % (Auto) 26.7 (25.0-50.0) % [place] % (Auto) 5.5 (2.0-11.0) % Eos % (Auto) 2.2 (0.0-4.0) % Baso % (Auto) 0.3 (0.2-1.2) % PT 10.3 (10.0-12.8) SEC INR 0.9 L (2.0-3.5) D-Dimer, Quantitative (<=0.58) mg/LFEU Sodium 135 L (136-145) mmol/L Potassium 4.3 (3.5-5.1) mmol/L Chloride 99 (98-107) mmol/L Carbon Dioxide 25 (21-32) mmol/L Anion Gap 15.3 (10-20) mmol/L BUN 9 (7-18) mg/dL Creatinine 1.0 (0.70-1.30) mg/dL Est Cr Clr Drug Dosing TNP Estimated GFR (MDRD) > 60 Glucose 98 (74-106) mg/dL Lactic Acid (0.4-2.0) mmol/L Calcium 8.8 (8.5-10.1) mg/dL Corrected Calcium 9.12 (8.5-10.1) mg/dL Phosphorus (2.6-4.7) mg/dL Magnesium 1.7 L (1.8-2.4) mg/dL Total Bilirubin 0.6 (0.2-1.0) mg/dL GGT (9-64) U/L AST 65 H (15-37) U/L ALT 78 H (16-63) U/L Alkaline Phosphatase 106 (46-116) U/L Troponin I 0.051 (<=0.056) ng/mL C-Reactive Protein 1.5 H (<=0.9) mg/dL NT-Pro-B Natriuret Pep 111 (<=125) pg/mL Total Protein 8.3 H (6.4-8.2) g/dL Albumin 3.6 (3.4-5.0) g/dL Globulin 4.7 Albumin/Globulin Ratio 0.77 Urine Color (YELLOW) Urine Appearance (CLEAR) Urine pH (5.0-8.0) Ur Specific [place] Urine Protein (NEGATIVE) mg/dL Urine Glucose (UA) (NEGATIVE) mg/dL Urine Ketones (NEGATIVE) mg/dL Urine Occult Blood (NEGATIVE) Urine Nitrite (NEGATIVE) Urine Bilirubin (NEGATIVE) Urine Urobilinogen (0.2) EU/dL Ur Leukocyte Esterase (NEGATIVE) Urine RBC (NOT SEEN) /HPF Urine WBC (NOT SEEN) /HPF Ur Squamous Epith Cells (NEGATIVE) /HPF Urine Bacteria (NEGATIVE) /HPF Urine Mucus (NEGATIVE) /LPF Urine Opiates Screen (NEAGTIVE) Ur Buprenorphine Scrn (NEGATIVE) Ur Oxycodone Screen (NEGATIVE) Ur EDDP (Meth Metab) (NEGATIVE) Urine Methadone Screen (NEGATIVE) Ur Barbiturates Screen (NEGATIVE) Ur Tricyclics Screen (NEGATIVE) Ur Phencyclidine Scrn (NEGATIVE) Ur Amphetamine Screen (NEGATIVE) U Methamphetamines Scrn (NEGATIVE) Urine MDMA Screen (NEGATIVE) U Benzodiazepines Scrn (NEGATIVE) U Cocaine Metab Screen (NEGATIVE) U Marijuana (THC) Screen (NEGATIVE) 11/01/19 11/01/19 11/01/19 Range/Units 11:09 11:09 11:12 WBC (4.0-10.0) x10^3/uL RBC (4.5-6.0) x10^6/uL Hgb (14.0-18.0) g/dL Hct (40.0-52.0) % MCV (78.0-93.0) fL MCH (26.0-32.0) pg MCHC (32.0-36.0) g/dL RDW Coeff of Kb (10.0-15.0) % Plt Count (130-400) x10^3/uL Neut % (Auto) (50.0-80.0) % Lymph % (Auto) (25.0-50.0) % [place] % (Auto) (2.0-11.0) % Eos % (Auto) (0.0-4.0) % Baso % (Auto) (0.2-1.2) % PT (10.0-12.8) SEC INR (2.0-3.5) D-Dimer, Quantitative 0.21 (<=0.58) mg/LFEU Sodium (136-145) mmol/L Potassium (3.5-5.1) mmol/L Chloride (98-107) mmol/L Carbon Dioxide (21-32) mmol/L Anion Gap (10-20) mmol/L BUN (7-18) mg/dL Creatinine (0.70-1.30) mg/dL Est Cr Clr Drug Dosing Estimated GFR (MDRD) Glucose (74-106) mg/dL Lactic Acid 1.4 (0.4-2.0) mmol/L Calcium (8.5-10.1) mg/dL Corrected Calcium (8.5-10.1) mg/dL Phosphorus (2.6-4.7) mg/dL Magnesium (1.8-2.4) mg/dL Total Bilirubin (0.2-1.0) mg/dL GGT 166 H (9-64) U/L AST (15-37) U/L ALT (16-63) U/L Alkaline Phosphatase (46-116) U/L Troponin I (<=0.056) ng/mL C-Reactive Protein (<=0.9) mg/dL NT-Pro-B Natriuret Pep (<=125) pg/mL Total Protein (6.4-8.2) g/dL Albumin (3.4-5.0) g/dL Globulin Albumin/Globulin Ratio Urine Color (YELLOW) Urine Appearance (CLEAR) Urine pH (5.0-8.0) Ur Specific [place] Urine Protein (NEGATIVE) mg/dL Urine Glucose (UA) (NEGATIVE) mg/dL Urine Ketones (NEGATIVE) mg/dL Urine Occult Blood (NEGATIVE) Urine Nitrite (NEGATIVE) Urine Bilirubin (NEGATIVE) Urine Urobilinogen (0.2) EU/dL Ur Leukocyte Esterase (NEGATIVE) Urine RBC (NOT SEEN) /HPF Urine WBC (NOT SEEN) /HPF Ur Squamous Epith Cells (NEGATIVE) /HPF Urine Bacteria (NEGATIVE) /HPF Urine Mucus (NEGATIVE) /LPF Urine Opiates Screen (NEAGTIVE) Ur Buprenorphine Scrn (NEGATIVE) Ur Oxycodone Screen (NEGATIVE) Ur EDDP (Meth Metab) (NEGATIVE) Urine Methadone Screen (NEGATIVE) Ur Barbiturates Screen (NEGATIVE) Ur Tricyclics Screen (NEGATIVE) Ur Phencyclidine Scrn (NEGATIVE) Ur Amphetamine Screen (NEGATIVE) U Methamphetamines Scrn (NEGATIVE) Urine MDMA Screen (NEGATIVE) U Benzodiazepines Scrn (NEGATIVE) U Cocaine Metab Screen (NEGATIVE) U Marijuana (THC) Screen (NEGATIVE) 11/01/19 11/01/19 11/02/19 Range/Units 11:38 12:35 06:23 WBC 15.1 H (4.0-10.0) x10^3/uL RBC 5.59 (4.5-6.0) x10^6/uL Hgb 16.3 (14.0-18.0) g/dL Hct 48.7 (40.0-52.0) % MCV 87.1 (78.0-93.0) fL MCH 29.2 (26.0-32.0) pg MCHC 33.5 (32.0-36.0) g/dL RDW Coeff of Kb 16.0 H (10.0-15.0) % Plt Count 229 (130-400) x10^3/uL Neut % (Auto) 88.8 H (50.0-80.0) % Lymph % (Auto) 6.7 L (25.0-50.0) % [place] % (Auto) 4.4 (2.0-11.0) % Eos % (Auto) 0.0 (0.0-4.0) % Baso % (Auto) 0.1 L (0.2-1.2) % PT (10.0-12.8) SEC INR (2.0-3.5) D-Dimer, Quantitative (<=0.58) mg/LFEU Sodium (136-145) mmol/L Potassium (3.5-5.1) mmol/L Chloride (98-107) mmol/L Carbon Dioxide (21-32) mmol/L Anion Gap (10-20) mmol/L BUN (7-18) mg/dL Creatinine (0.70-1.30) mg/dL Est Cr Clr Drug Dosing Estimated GFR (MDRD) Glucose (74-106) mg/dL Lactic Acid (0.4-2.0) mmol/L Calcium (8.5-10.1) mg/dL Corrected Calcium (8.5-10.1) mg/dL Phosphorus (2.6-4.7) mg/dL Magnesium (1.8-2.4) mg/dL Total Bilirubin (0.2-1.0) mg/dL GGT (9-64) U/L AST (15-37) U/L ALT (16-63) U/L Alkaline Phosphatase (46-116) U/L Troponin I (<=0.056) ng/mL C-Reactive Protein (<=0.9) mg/dL NT-Pro-B Natriuret Pep (<=125) pg/mL Total Protein (6.4-8.2) g/dL Albumin (3.4-5.0) g/dL Globulin Albumin/Globulin Ratio Urine Color Yellow (YELLOW) Urine Appearance Slightly cloudy H (CLEAR) Urine pH 7.0 (5.0-8.0) Ur Specific [place] 1.020 Urine Protein 100 H (NEGATIVE) mg/dL Urine Glucose (UA) Negative (NEGATIVE) mg/dL Urine Ketones Negative (NEGATIVE) mg/dL Urine Occult Blood Negative (NEGATIVE) Urine Nitrite Negative (NEGATIVE) Urine Bilirubin Negative (NEGATIVE) Urine Urobilinogen 0.2 (0.2) EU/dL Ur Leukocyte Esterase Negative (NEGATIVE) Urine RBC 0-5 (NOT SEEN) /HPF Urine WBC 0-5 (NOT SEEN) /HPF Ur Squamous Epith Cells Not seen (NEGATIVE) /HPF Urine Bacteria Rare (NEGATIVE) /HPF Urine Mucus Few H (NEGATIVE) /LPF Urine Opiates Screen Negative (NEAGTIVE) Ur Buprenorphine Scrn Negative (NEGATIVE) Ur Oxycodone Screen Negative (NEGATIVE) Ur EDDP (Meth Metab) Negative (NEGATIVE) Urine Methadone Screen Negative (NEGATIVE) Ur Barbiturates Screen Negative (NEGATIVE) Ur Tricyclics Screen Positive H (NEGATIVE) Ur Phencyclidine Scrn Negative (NEGATIVE) Ur Amphetamine Screen Negative (NEGATIVE) U Methamphetamines Scrn Negative (NEGATIVE) Urine MDMA Screen Negative (NEGATIVE) U Benzodiazepines Scrn Negative (NEGATIVE) U Cocaine Metab Screen Negative (NEGATIVE) U Marijuana (THC) Screen Negative (NEGATIVE) 11/02/19 Range/Units 06:23 WBC (4.0-10.0) x10^3/uL RBC (4.5-6.0) x10^6/uL Hgb (14.0-18.0) g/dL Hct (40.0-52.0) % MCV (78.0-93.0) fL MCH (26.0-32.0) pg MCHC (32.0-36.0) g/dL RDW Coeff of Kb (10.0-15.0) % Plt Count (130-400) x10^3/uL Neut % (Auto) (50.0-80.0) % Lymph % (Auto) (25.0-50.0) % [place] % (Auto) (2.0-11.0) % Eos % (Auto) (0.0-4.0) % Baso % (Auto) (0.2-1.2) % PT (10.0-12.8) SEC INR (2.0-3.5) D-Dimer, Quantitative (<=0.58) mg/LFEU Sodium 136 (136-145) mmol/L Potassium 4.5 (3.5-5.1) mmol/L Chloride 97 L (98-107) mmol/L Carbon Dioxide 26 (21-32) mmol/L Anion Gap 17.5 (10-20) mmol/L BUN 16 (7-18) mg/dL Creatinine 1.1 (0.70-1.30) mg/dL Est Cr Clr Drug Dosing 94.31 Estimated GFR (MDRD) > 60 Glucose 128 H (74-106) mg/dL Lactic Acid (0.4-2.0) mmol/L Calcium 9.3 (8.5-10.1) mg/dL Corrected Calcium 9.46 (8.5-10.1) mg/dL Phosphorus 4.1 (2.6-4.7) mg/dL Magnesium 1.8 (1.8-2.4) mg/dL Total Bilirubin 0.8 (0.2-1.0) mg/dL GGT (9-64) U/L AST 43 H (15-37) U/L ALT 70 H (16-63) U/L Alkaline Phosphatase 102 (46-116) U/L Troponin I < 0.040 (<=0.056) ng/mL C-Reactive Protein (<=0.9) mg/dL NT-Pro-B Natriuret Pep (<=125) pg/mL Total Protein 8.7 H (6.4-8.2) g/dL Albumin 3.8 (3.4-5.0) g/dL Globulin 4.9 Albumin/Globulin Ratio 0.78 Urine Color (YELLOW) Urine Appearance (CLEAR) Urine pH (5.0-8.0) Ur Specific [place] Urine Protein (NEGATIVE) mg/dL Urine Glucose (UA) (NEGATIVE) mg/dL Urine Ketones (NEGATIVE) mg/dL Urine Occult Blood (NEGATIVE) Urine Nitrite (NEGATIVE) Urine Bilirubin (NEGATIVE) Urine Urobilinogen (0.2) EU/dL Ur Leukocyte Esterase (NEGATIVE) Urine RBC (NOT SEEN) /HPF Urine WBC (NOT SEEN) /HPF Ur Squamous Epith Cells (NEGATIVE) /HPF Urine Bacteria (NEGATIVE) /HPF Urine Mucus (NEGATIVE) /LPF Urine Opiates Screen (NEAGTIVE) Ur Buprenorphine Scrn (NEGATIVE) Ur Oxycodone Screen (NEGATIVE) Ur EDDP (Meth Metab) (NEGATIVE) Urine Methadone Screen (NEGATIVE) Ur Barbiturates Screen (NEGATIVE) Ur Tricyclics Screen (NEGATIVE) Ur Phencyclidine Scrn (NEGATIVE) Ur Amphetamine Screen (NEGATIVE) U Methamphetamines Scrn (NEGATIVE) Urine MDMA Screen (NEGATIVE) U Benzodiazepines Scrn (NEGATIVE) U Cocaine Metab Screen (NEGATIVE) U Marijuana (THC) Screen (NEGATIVE) David Results Last 24 Hours: Microbiology 11/01/19 11:18 Aerobic Blood Culture - Preliminary Blood - Venous - Lab Draw Gram Positive Cocci In Clustrs Med Orders - Current: Current Medications Acetaminophen (Tylenol) 650 mg PO Q4H PRN PRN Reason: Pain (Mild 1-3)/fever Albuterol (Ventolin Hfa) 0 gm INH Q4H PRN PRN Reason: Shortness of Breath Carvedilol (Coreg) 6.25 mg PO BIDMEALS [facility] Folic Acid (Folic Acid) 1 mg PO DAILY [facility] Last Admin: 11/02/19 07:40 Dose: 1 mg Hydrochlorothiazide (Hydrochlorothiazide) 25 mg PO DAILY [facility] Last Admin: 11/02/19 07:40 Dose: 25 mg Lisinopril (Prinivil) 40 mg PO DAILY [facility] Last Admin: 11/02/19 07:40 Dose: 40 mg Lorazepam (Ativan) 1 - 2 mg IVPUSH Q4H PRN PRN Reason: Anxiety Last Admin: 11/02/19 02:48 Dose: 2 mg Multivitamins/Minerals (Thera M Plus) 1 tab PO DAILY [facility] Last Admin: 11/02/19 07:40 Dose: 1 tab Ondansetron HCl (Zofran) 8 mg IV Q6H PRN PRN Reason: Nausea/Vomiting Sodium Chloride (Saline Flush) 10 ml FLUSH ASDIRECTED PRN PRN Reason: Keep Vein Open Last Admin: 11/02/19 02:48 Dose: 10 ml Thiamine HCl (Vitamin B-1) 100 mg PO DAILY [facility] Discontinued Medications Albuterol (Proventil Neb Soln) 2.5 mg NEB ONETIME ONE Stop: 11/01/19 11:43 Last Admin: 11/01/19 11:49 Dose: 2.5 mg Albuterol/Ipratropium (Duoneb 3.0-0.5 Mg/3 Ml) 3 ml NEB ONETIME ONE Stop: 11/01/19 11:15 Last Admin: 11/01/19 11:00 Dose: 3 ml Aspirin (Aspirin) 324 mg PO ONETIME ONE Stop: 11/01/19 11:09 Last Admin: 11/01/19 11:13 Dose: 324 mg Carvedilol (Coreg) 12.5 mg PO BIDMEALS [facility] Last Admin: 11/02/19 09:17 Dose: 12.5 mg Furosemide (Lasix) 40 mg IV ONETIME ONE Stop: 11/01/19 11:06 Last Admin: 11/01/19 11:13 Dose: 40 mg Lactated Ringer's (Ringers, Lactated) 1,000 mls @ 75 mls/hr IV ASDIRECTED [facility] Last Admin: 11/02/19 04:57 Dose: 75 mls/hr Lorazepam (Ativan) 1 mg IVPUSH STAT ONE Stop: 11/01/19 12:34 Last Admin: 11/01/19 12:47 Dose: 1 mg Methylprednisolone Sodium Succinate (Solu-Medrol) 125 mg IV ONETIME ONE Stop: 11/01/19 12:33 Last Admin: 11/01/19 12:47 Dose: 125 mg Nitroglycerin (Nitrostat) 0.4 mg SL ONETIME ONE Stop: 11/01/19 11:23 Last Admin: 11/01/19 11:35 Dose: 0.4 mg Thiamine HCl (Vitamin B-1) 100 mg IV DAILY [facility] Last Admin: 11/02/19 07:40 Dose: 100 mg Sepsis Event Note - Evaluation Sepsis Screening Result: No Definite Risk - Focused Exam Vital Signs: Vital Signs Temp Pulse Pulse Resp BP BP Pulse Ox 11/02/19 09:17 118 H 143/106 H 11/02/19 07:40 187/104 H 11/02/19 06:00 36.6 C 114 H 19 147/114 H 93 L 11/02/19 02:00 36.0 C L 99 21 H 162/102 H 94 L 11/01/19 22:28 36.9 C 107 H 20 168/111 H 95 Date Exam was Performed: 11/02/19 Time Exam was Performed: 09:34 - Problem List Review Problem List Initiated/Reviewed/Updated: Yes - My Orders Last 24 Hours: My Active Orders 11/01/19 12:49 RT Peak Flow Measurement [RC] ASDIRECTED 11/01/19 14:40 LORazepam [Ativan] 1 - 2 mg IVPUSH Q4H PRN 11/01/19 14:43 Patient Status [ADT] Routine Ambulate [RC] Oxygen Therapy [RC] .PRN Up ad Rama [RC] VTE/DVT Education [RC] .PRN Vital Signs [RC] 02,06,10,14,18,22 Consult to Case Management/Cad Specialist [CONS] Routine Acetaminophen [Tylenol] 650 mg PO Q4H PRN Ondansetron [Zofran] 8 mg IV Q6H PRN Resuscitation Status Routine 11/01/19 14:45 hydroCHLOROthiazide 25 mg PO DAILY 11/01/19 14:46 RT Aerosol Therapy [RC] .PRN Albuterol [Ventolin HFA] See Dose Instructions INH Q4H PRN 11/01/19 15:00 Folic Acid 1 mg PO DAILY Multivitamins w-Iron/Ca/FA/Min [Thera M Plus] 1 tab PO DAILY lisinopriL [Prinivil] 40 mg PO DAILY 11/01/19 Dinner Regular Diet [DIET] 11/02/19 18:00 carvediloL [Coreg] 6.25 mg PO BIDMEALS 11/03/19 08:00 Thiamine [Vitamin B-1] 100 mg PO DAILY
--- NOTE | 2019-11-02 11:18 | CR ---
[id number] RAD/RAD Chest PA And Lateral EXAM: FRONTAL AND LATERAL CHEST INDICATION: BLOOD CULTURE POSITIVE, FLUID OVERLOAD. COMPARISON: November 01, 2019. DISCUSSION: Mild cardiomegaly. Interval development of mild central vascular congestion. Mild bilateral interstitial opacities, favor edema over atypical infection. No focal airspace consolidation. No pleural effusions. IMPRESSION: 1. The heart is mildly enlarged with interval development of mild pulmonary vascular congestion. Srinivasan Montenegro MD 11/02/19 1117 Thank you for allowing us to participate in the care of your patient.
[2019-11-02] MEDS: Carvedilol 6.25 MG Tab PO SCH (17:18)
[2019-11-03 07:12] LABS: CHLORIDE,CL 99 mmol/L (98-107); SODIUM,NA 138 mmol/L (136-145)
[2019-11-03 07:13] LABS: ANION GAP 14.9 mmol/L (10-20)
[2019-11-03] MEDS: Lisinopril 20 MG Tab PO SCH (07:53)
[2019-11-03] MEDS: Carvedilol 6.25 MG Tab PO SCH ×2 (07:53→17:40)
[2019-11-03] MEDS: Folic Acid 1 MG Tab PO SCH (07:54)
[2019-11-03] MEDS: Hydrochlorothiazide 25 MG Tab PO SCH (07:54)
[2019-11-03] MEDS: Multivitamins with Iron/Calcium/Folic Acid/Minerals Tab PO SCH (07:54)
[2019-11-03] MEDS: Thiamine 100 MG Tab PO SCH (07:54)
--- NOTE | 2019-11-03 09:51 | PCM.PN ---
- General Info Date of Service: 11/03/19 Subjective Update: 29 yo male hospital day #3 admitted for alcohol withdrawal and hypertension. Patient states he continues to feel symptoms of withdrawal. He notes that these symptoms have fluctuated during his hospitalization and were better right away when he woke up this morning but are worse again now. He has a headache, nausea , diaphoresis, and tremors this morning. He woke up many times overnight forgetting that he was in the hospital and "reaching for cigarettes or alcohol. " He is apprehensive about returning home and starting to drink alcohol again. He does note that he has always been an anxious person. He has taken depression medications in the past and states that these did not work well for him. He is not sure all of the names of medications he has taken but does recall effexor caused significant GI side effects. - Review of Systems General: Reports: No Symptoms HEENT: Reports: No Symptoms Pulmonary: Reports: No Symptoms Cardiovascular: Reports: No Symptoms Gastrointestinal: Reports: No Symptoms Genitourinary: Reports: No Symptoms Musculoskeletal: Reports: No Symptoms Skin: Reports: No Symptoms Neurological: Reports: No Symptoms - Patient Data Vitals - Most Recent: Last Vital Signs Temp 36.6 C 11/03/19 06:00 Pulse 95 11/03/19 07:53 Resp 20 11/03/19 06:00 BP 151/82 H 11/03/19 07:53 Pulse Ox 93 L 11/03/19 06:00 Weight - Most Recent: 136.259 kg I&O - Last 24 Hours: Intake & Output 11/02/19 11/03/19 11/03/19 22:59 06:59 14:59 Intake Total 240 1200 780 Output Total 1 Balance 240 1199 780 Lab Results Last 24 Hours: Laboratory Results - last 24 hr 11/02/19 11/02/19 11/02/19 Range/Units 06:23 06:23 10:40 WBC (4.0-10.0) x10^3/uL RBC (4.5-6.0) x10^6/uL Hgb (14.0-18.0) g/dL Hct (40.0-52.0) % MCV (78.0-93.0) fL MCH (26.0-32.0) pg MCHC (32.0-36.0) g/dL RDW Coeff of Kb (10.0-15.0) % Plt Count (130-400) x10^3/uL Neut % (Auto) (50.0-80.0) % Lymph % (Auto) (25.0-50.0) % [place] % (Auto) (2.0-11.0) % Eos % (Auto) (0.0-4.0) % Baso % (Auto) (0.2-1.2) % Sodium (136-145) mmol/L Potassium (3.5-5.1) mmol/L Chloride (98-107) mmol/L Carbon Dioxide (21-32) mmol/L Anion Gap (10-20) mmol/L BUN (7-18) mg/dL Creatinine (0.70-1.30) mg/dL Est Cr Clr Drug Dosing mL/min Estimated GFR (MDRD) Glucose (74-106) mg/dL Lactic Acid 1.9 (0.4-2.0) mmol/L Calcium (8.5-10.1) mg/dL Corrected Calcium (8.5-10.1) mg/dL Total Bilirubin (0.2-1.0) mg/dL AST (15-37) U/L ALT (16-63) U/L Alkaline Phosphatase (46-116) U/L C-Reactive Protein 1.3 H (<=0.9) mg/dL Total Protein (6.4-8.2) g/dL Albumin (3.4-5.0) g/dL Globulin Albumin/Globulin Ratio Procalcitonin <0.05 (<0.10) ng/mL Urine Color (YELLOW) Urine Appearance (CLEAR) Urine pH (5.0-8.0) Ur Specific Payne Urine Protein (NEGATIVE) mg/dL Urine Glucose (UA) (NEGATIVE) mg/dL Urine Ketones (NEGATIVE) mg/dL Urine Occult Blood (NEGATIVE) Urine Nitrite (NEGATIVE) Urine Bilirubin (NEGATIVE) Urine Urobilinogen (0.2) EU/dL Ur Leukocyte Esterase (NEGATIVE) Urine RBC (NOT SEEN) /HPF Urine WBC (NOT SEEN) /HPF Ur Squamous Epith Cells (NEGATIVE) /HPF Urine Bacteria (NEGATIVE) /HPF Urine Mucus (NEGATIVE) /LPF 11/02/19 11/03/19 11/03/19 Range/Units 11:20 06:20 06:20 WBC 11.5 H (4.0-10.0) x10^3/uL RBC 5.78 (4.5-6.0) x10^6/uL Hgb 16.9 (14.0-18.0) g/dL Hct 51.0 (40.0-52.0) % MCV 88.2 (78.0-93.0) fL MCH 29.2 (26.0-32.0) pg MCHC 33.1 (32.0-36.0) g/dL RDW Coeff of Kb 17.6 H (10.0-15.0) % Plt Count 227 (130-400) x10^3/uL Neut % (Auto) 71.1 (50.0-80.0) % Lymph % (Auto) 23.2 L (25.0-50.0) % [place] % (Auto) 4.7 (2.0-11.0) % Eos % (Auto) 0.7 (0.0-4.0) % Baso % (Auto) 0.3 (0.2-1.2) % Sodium 138 (136-145) mmol/L Potassium 3.9 (3.5-5.1) mmol/L Chloride 99 (98-107) mmol/L Carbon Dioxide 28 (21-32) mmol/L Anion Gap 14.9 (10-20) mmol/L BUN 23 H (7-18) mg/dL Creatinine 1.2 (0.70-1.30) mg/dL Est Cr Clr Drug Dosing 86.45 mL/min Estimated GFR (MDRD) > 60 Glucose 101 (74-106) mg/dL Lactic Acid (0.4-2.0) mmol/L Calcium 9.1 (8.5-10.1) mg/dL Corrected Calcium 9.34 (8.5-10.1) mg/dL Total Bilirubin 0.6 (0.2-1.0) mg/dL AST 46 H (15-37) U/L ALT 62 (16-63) U/L Alkaline Phosphatase 91 (46-116) U/L C-Reactive Protein 0.3 (<=0.9) mg/dL Total Protein 8.2 (6.4-8.2) g/dL Albumin 3.7 (3.4-5.0) g/dL Globulin 4.5 Albumin/Globulin Ratio 0.82 Procalcitonin (<0.10) ng/mL Urine Color Yellow (YELLOW) Urine Appearance Slightly cloudy H (CLEAR) Urine pH 6.5 (5.0-8.0) Ur Specific Payne 1.020 Urine Protein 100 H (NEGATIVE) mg/dL Urine Glucose (UA) Negative (NEGATIVE) mg/dL Urine Ketones Negative (NEGATIVE) mg/dL Urine Occult Blood Negative (NEGATIVE) Urine Nitrite Negative (NEGATIVE) Urine Bilirubin Negative (NEGATIVE) Urine Urobilinogen 0.2 (0.2) EU/dL Ur Leukocyte Esterase Negative (NEGATIVE) Urine RBC Not seen (NOT SEEN) /HPF Urine WBC 0-5 (NOT SEEN) /HPF Ur Squamous Epith Cells Not seen (NEGATIVE) /HPF Urine Bacteria Rare (NEGATIVE) /HPF Urine Mucus Rare H (NEGATIVE) /LPF David Results Last 24 Hours: Microbiology 11/01/19 11:18 Aerobic Blood Culture - Preliminary Blood - Venous - Lab Draw Staphylococcus Coagulase Neg Anaerobic Blood Culture - Preliminary NO GROWTH AFTER 1 DAY 11/01/19 11:12 Aerobic Blood Culture - Preliminary Blood - Venous NO GROWTH AFTER 1 DAY Anaerobic Blood Culture - Preliminary NO GROWTH AFTER 1 DAY 11/02/19 10:35 Anaerobic Blood Culture - Final Blood - Venous - Lab Draw Med Orders - Current: Current Medications Acetaminophen (Tylenol) 650 mg PO Q4H PRN PRN Reason: Pain (Mild 1-3)/fever Albuterol (Ventolin Hfa) 0 gm INH Q4H PRN PRN Reason: Shortness of Breath Carvedilol (Coreg) 6.25 mg PO BIDMEALS [facility] Last Admin: 11/03/19 07:53 Dose: 6.25 mg Folic Acid (Folic Acid) 1 mg PO DAILY [facility] Last Admin: 11/03/19 07:54 Dose: 1 mg Hydrochlorothiazide (Hydrochlorothiazide) 25 mg PO DAILY [facility] Last Admin: 11/03/19 07:54 Dose: 25 mg Lisinopril (Prinivil) 40 mg PO DAILY [facility] Last Admin: 11/03/19 07:53 Dose: 40 mg Lorazepam (Ativan) 1 - 2 mg IVPUSH Q4H PRN PRN Reason: Anxiety Last Admin: 11/02/19 21:04 Dose: 2 mg Multivitamins/Minerals (Thera M Plus) 1 tab PO DAILY [facility] Last Admin: 11/03/19 07:54 Dose: 1 tab Ondansetron HCl (Zofran) 8 mg IV Q6H PRN PRN Reason: Nausea/Vomiting Sodium Chloride (Saline Flush) 10 ml FLUSH ASDIRECTED PRN PRN Reason: Keep Vein Open Last Admin: 11/02/19 21:05 Dose: 10 ml Thiamine HCl (Vitamin B-1) 100 mg PO DAILY [facility] Last Admin: 11/03/19 07:54 Dose: 100 mg Discontinued Medications Albuterol (Proventil Neb Soln) 2.5 mg NEB ONETIME ONE Stop: 11/01/19 11:43 Last Admin: 11/01/19 11:49 Dose: 2.5 mg Albuterol/Ipratropium (Duoneb 3.0-0.5 Mg/3 Ml) 3 ml NEB ONETIME ONE Stop: 11/01/19 11:15 Last Admin: 11/01/19 11:00 Dose: 3 ml Aspirin (Aspirin) 324 mg PO ONETIME ONE Stop: 11/01/19 11:09 Last Admin: 11/01/19 11:13 Dose: 324 mg Carvedilol (Coreg) 12.5 mg PO BIDMEALS [facility] Last Admin: 11/02/19 09:17 Dose: 12.5 mg Furosemide (Lasix) 40 mg IV ONETIME ONE Stop: 11/01/19 11:06 Last Admin: 11/01/19 11:13 Dose: 40 mg Lactated Ringer's (Ringers, Lactated) 1,000 mls @ 75 mls/hr IV ASDIRECTED [facility] Last Admin: 11/02/19 04:57 Dose: 75 mls/hr Lorazepam (Ativan) 1 mg IVPUSH STAT ONE Stop: 11/01/19 12:34 Last Admin: 11/01/19 12:47 Dose: 1 mg Methylprednisolone Sodium Succinate (Solu-Medrol) 125 mg IV ONETIME ONE Stop: 11/01/19 12:33 Last Admin: 11/01/19 12:47 Dose: 125 mg Nitroglycerin (Nitrostat) 0.4 mg SL ONETIME ONE Stop: 11/01/19 11:23 Last Admin: 11/01/19 11:35 Dose: 0.4 mg Thiamine HCl (Vitamin B-1) 100 mg IV DAILY [facility] Last Admin: 11/02/19 07:40 Dose: 100 mg - Exam General: Alert, Cooperative, No Acute Distress HEENT: Mucous Membr. Moist/[place] Neck: Supple, Trachea Midline, No Thyromegaly. No: Lymphadenopathy Lungs: Normal Respiratory Effort, Wheezing Cardiovascular: Regular Rate, Regular Rhythm, No Murmurs GI/Abdominal Exam: Normal Bowel Sounds, Soft, Non-Tender, No Organomegaly, No Distention, No Mass Extremities: Non-Tender, No Pedal Edema, Normal Capillary Refill Peripheral Pulses: 2+: Radial (L), Radial (R) Skin: Warm, Dry, Intact Sepsis Event Note - Evaluation Sepsis Screening Result: No Definite Risk - Focused Exam Vital Signs: Vital Signs Temp Pulse Pulse Resp BP BP Pulse Ox 11/03/19 07:53 95 151/82 H 11/03/19 06:00 36.6 C 95 20 151/82 H 93 L 11/03/19 02:00 36.4 C 98 20 154/100 H 95 Date Exam was Performed: 11/03/19 Time Exam was Performed: 12:04 - Problem List & Annotations (1) Alcohol withdrawal SNOMED Code(s): 848654430 Code(s): F10.239 - ALCOHOL DEPENDENCE WITH WITHDRAWAL, UNSPECIFIED Status: Acute Current Visit: Yes Qualifiers: Complication of substance-induced condition: uncomplicated Qualified Code(s ): F10.230 - Alcohol dependence with withdrawal, uncomplicated (2) Alcohol abuse SNOMED Code(s): 15350851 Code(s): F10.10 - ALCOHOL ABUSE, UNCOMPLICATED Status: Chronic Current Visit: Yes (3) Positive blood culture SNOMED Code(s): 130946658 Code(s): R78.81 - BACTEREMIA Status: Acute Current Visit: Yes (4) Hypertension SNOMED Code(s): 23515651 Code(s): I10 - ESSENTIAL (PRIMARY) HYPERTENSION Status: Chronic Current Visit: Yes Qualifiers: Hypertension type: essential hypertension Qualified Code(s): I10 - Essential (primary) hypertension (5) Anxiety SNOMED Code(s): 01917154 Code(s): F41.9 - ANXIETY DISORDER, UNSPECIFIED Status: Chronic Current Visit: Yes (6) Asthma SNOMED Code(s): 097652241 Code(s): J45.909 - UNSPECIFIED ASTHMA, UNCOMPLICATED Status: Chronic Current Visit: Yes Qualifiers: Asthma severity: moderate Asthma persistence: persistent Asthma complication type: uncomplicated Qualified Code(s): J45.40 - Moderate persistent asthma, uncomplicated - Problem List Review Problem List Initiated/Reviewed/Updated: Yes - Assessment Assessment:: 29 yo male hospital day #3 admitted for alcohol withdrawal and hypertension. - Plan Plan:: #1 Alcohol Withdrawal #2 Alcohol Abuse - Withdrawal symptoms up and down but overall improving. - Continue CIWA with PRN lorazepam. - Hoping to meet with F5 member sometime today. Planning then for outpatient treatment after that. - Anticipate he will be prepared for dismissal in the next 24-48 hours barring any onset of complicated withdrawal. #3 Positive Blood Culture - Is GPC but no further identity yet. - This is felt to be a contaminant in light of the following factors: negative procalcitonin, improving WBC off antibiotics, and lack of symptoms. - Repeat blood cultures drawn yesterday. Anticipate final report tomorrow. - Will continue to observe off antibiotics. #4 Hypertension - BP's improved since admission but still above goal. - That being said, he has had multiple medication adjustments over the past 24- 48 hours; therefore, will continue current medication management for now. - He will need outpatient follow-up for this. #5 Anxiety - Had discussed starting lexapro with the patient but this is not available to order in [employer]. - Therefore, will do hydroxyzine at bedtime to see if this will help with sleep and also potentially anxiety. #6 Asthma - No current symptoms. Patient will remain on acute today - anticipate discharge home in the next 1-2 days. He will be 72 hours from last drink as of tomorrow; also awaiting final report on repeat blood cultures. Patient is full code. Given uncertain duration of hospitalization and improvement in blood pressure, will add lovenox for VTE prophylaxis. Patient will be signed out to the weekend information systems security officer provider for further cares.
[2019-11-03] MEDS: LORazepam 2 MG/ML SDV IVPUSH PRN ×2 (13:35→19:53)
[2019-11-03] MEDS: Enoxaparin 40 MG/0.4 ML Syringe SUBCUT SCH (13:36)
[2019-11-03] MEDS: hydrOXYzine HCl 25 MG Tab PO SCH (19:54)
[2019-11-04] MEDS: LORazepam 2 MG/ML SDV IVPUSH PRN ×2 (00:17→07:53)
[2019-11-04] MEDS: Lisinopril 20 MG Tab PO SCH (07:52)
[2019-11-04] MEDS: Hydrochlorothiazide 25 MG Tab PO SCH (07:52)
[2019-11-04] MEDS: Thiamine 100 MG Tab PO SCH (07:52)
[2019-11-04] MEDS: Multivitamins with Iron/Calcium/Folic Acid/Minerals Tab PO SCH (07:53)
[2019-11-04] MEDS: Folic Acid 1 MG Tab PO SCH (07:53)
[2019-11-04] MEDS: Carvedilol 6.25 MG Tab PO SCH ×2 (07:53→18:24)
[2019-11-04 07:57] LABS: CHLORIDE,CL 101 mmol/L (98-107); SODIUM,NA 138 mmol/L (136-145)
[2019-11-04 08:00] LABS: ANION GAP 14.5 mmol/L (10-20)
[2019-11-04] MEDS: Enoxaparin 40 MG/0.4 ML Syringe SUBCUT SCH (12:33)
--- NOTE | 2019-11-04 18:27 | PN ---
Progress Note for KINDRA RASMUSSEN Date: 11/04/2019 Room #: VM.216 CHIEF COMPLAINT: Alcohol dependence. SUBJECTIVE: Hospital day #4 for a 29-year-old male patient who was admitted last Wednesday for acute alcohol withdrawal and uncontrolled hypertension. The patient states today that he did not have a very good morning. The patient states that when he awoke, he was very diaphoretic and shaky. The patient states he also felt somewhat confused. The patient was very nauseated and had dry heaving. The patient was given 2 mg of IV Ativan per nursing staff. CIWA score per nursing was 17. The patient states currently he still feels somewhat shaky, but is not having any cravings for alcohol. The patient's nausea has subsided. The patient has not had any diarrhea or vomiting. The patient denies any shortness of breath or cough. The patient currently is not having any chest pain or palpitations. The patient states that his sweating has improved. The patient currently is not having a headache, dizziness, or lightheadedness. OBJECTIVE: Vital Signs: Heart rate 114, blood pressure 154/94, weight 298 pounds, temperature 97.2, respiratory rate 24, oxygen saturation 93% on room air. General Presentation: The patient appears to be lethargic from the Ativan. The patient does not appear to be in any acute distress. The patient is cooperative. Respiratory: Lungs are clear to auscultation bilaterally. The patient has snoring respirations, possibly secondary to sleep apnea. Respiratory rate is slightly tachypneic. Cardiovascular: Tachycardic. Regular rhythm. No murmurs. Pulses +2 and symmetric bilaterally. Abdomen: Abdomen is soft. Bowel sounds are active x4. Abdomen is nontender. No hepatosplenomegaly. Skin: Skin is warm, dry, and intact. No rashes noted. Neurologic: The patient is lethargic, but appropriate with answers when prompted. The patient is alert to self and place, but disoriented to time and day. No focal neurological deficits. ALLERGIES: None CURRENT MEDICATIONS: Acetaminophen 650 mg PO Q4H as needed Ventolin HFA as directed Coreg 6.25 mg PO BID Lovenox 40 mg SQ daily Folic Acid 1 mg PO daily HCTZ 25 mg PO daily Atarax 25-50 mg PO daily at bedtime as needed Lisinopril 40 mg PO daily Ativan 1-2 mg IVP Q4H PRN Multivitamin 1 tab PO daily Zofran 8 mg IVP Q6H PRN Thiamine 100 mg PO daily LABORATORY WORK: BMP; sodium is 138, potassium 4.5, chloride 101, CO2 is 27, anion gap is 14.5, BUN is 25, creatinine 1.1, GFR greater than 60, glucose 104, calcium 9.2. IMAGING STUDIES: None. ASSESSMENT: 1. Acute alcohol withdrawal. 2. Alcohol abuse. 3. Essential hypertension. 4. Generalized anxiety disorder. 5. Mild persistent asthma, uncomplicated. 6. Positive blood cultures. PLAN: A 29-year-old male patient with a past medical history of asthma, drug abuse, alcohol abuse, obesity, was admitted last Wednesday for acute EtOH withdrawal and uncontrolled hypertension. 1. Acute EtOH withdrawal-we will continue the patient on his current CIWA assessment. Continue with Ativan as needed for worsening alcohol withdrawal symptoms. The patient will continue on thiamine and folic acid. Continue with multivitamin. The patient did meet with an F5 counselor yesterday and deemed encouraged about sobriety. The patient continues to have concerns going home and starting to drink again; however, he is not interested in inpatient treatment. 2. Alcohol abuse-as above. 3. Essential hypertension. Continue with Coreg and hydrochlorothiazide. Continue with max dose of lisinopril. Dietary surveillance and weight loss recommended. Advised smoking cessation. 4. Generalized anxiety disorder-the patient will be started on Lexapro at the time of discharge. The patient will be placed on a titrating dose schedule. The patient would also benefit from psychotherapy as an outpatient. Also, if the patient continues to stay off alcohol and start the Lexapro, this will greatly help with anxiety. 5. Mild persistent asthma, uncomplicated-no current issues. The patient is unable to afford the Symbicort. The patient has not needed any asthma treatments during this inpatient stay. Continue to monitor on outpatient basis. 6. Positive blood cultures-second set of blood cultures do not appear to be growing any GPC. Therefore, no antibiotics will be continued and blood cultures consider contaminant. Given the patient had an elevated CIWA score of 17 this morning, we will continue to observe for an additional 24 hours and hopefully ensure no relapse. The patient is a full code. The patient does wish to be transferred to a higher level of care should the need arise. In anticipation for discharge tomorrow, the patient will be continued on folic acid, thiamine, and multivitamin. The patient will continue on his current blood pressure medication. If the patient continues to have breakthrough withdrawal symptoms, may consider starting the patient on Librium p.o. We will reassess tomorrow morning. We will also recheck blood work in the morning as the patient did have elevated liver enzymes on admission. TB: 11/04/2019 16:30:35 MODL: 11/04/2019 18:22:35 /[id number] MTDAntonino
[2019-11-04] MEDS: hydrOXYzine HCl 25 MG Tab PO SCH (20:13)
[2019-11-05] MEDS: Lisinopril 20 MG Tab PO SCH (07:36)
[2019-11-05] MEDS: Folic Acid 1 MG Tab PO SCH (07:36)
[2019-11-05] MEDS: Carvedilol 6.25 MG Tab PO SCH (07:36)
[2019-11-05] MEDS: Hydrochlorothiazide 25 MG Tab PO SCH (07:36)
[2019-11-05] MEDS: Multivitamins with Iron/Calcium/Folic Acid/Minerals Tab PO SCH (07:36)
[2019-11-05] MEDS: Thiamine 100 MG Tab PO SCH (07:36)
[2019-11-05 07:46] LABS: CHLORIDE,CL 100 mmol/L (98-107); SODIUM,NA 138 mmol/L (136-145)
[2019-11-05 07:48] LABS: ANION GAP 13.3 mmol/L (10-20)
[2019-11-05 09:53] VITALS: BP 130/76; PULSE 95
--- NOTE | 2019-11-05 19:40 | DISCH ---
ATTENDING PROVIDER: Koffi Dos Santos MD PRIMARY CARE PROVIDER: Piedad Hammond MD ADMITTING DIAGNOSES: 1. Alcohol dependence. 2. Uncontrolled hypertension. DISCHARGE DIAGNOSES: 1. Chronic alcohol abuse, in remission. 2. Essential hypertension, controlled. 3. Positive blood cultures, resolved. SECONDARY DIAGNOSES: 1. Mild uncomplicated asthma. 2. Obesity. 3. Generalized anxiety disorder. 4. Nicotine dependence. 5. History of marijuana abuse. 6. Possible sleep apnea. 7. Mild left ventricular dysfunction. CONSULTATION: Social Work. PROCEDURES: None. HISTORY OF PRESENT ILLNESS: Maamdou is a 29-year-old male patient who was seen in the clinic at [facility] on 11/01/2019 for his inability to quit drinking. The patient was concerned at that time about going through severe withdrawal as he has had them in the past. The patient stated he generally drinks about 1 L of vodka daily. The patient had stated he would get severe shakes and sweaty if he tries stopping. The alcohol abuse has been chronic. The patient has never had any seizures in the past secondary to his drinking. The patient has not been on any medications for his alcohol abuse in the past. The patient has not had any overt psychological craving. The patient was also noted to have a significantly elevated blood pressure. The patient has known hypertension. The patient had been on lisinopril and amlodipine in the past. The amlodipine had been discontinued secondary to peripheral edema. The patient has not been taking his lisinopril prior to admission. The patient also has a history of mild persistent asthma. He has not been on his asthma medications due to financial issues and not having insurance. The patient had been admitted to the hospital last year for pneumonia. The patient apparently has a history also of CHF. The patient's last echocardiogram had been normal. The chest x-ray on admission did not show any pulmonary edema. The patient did not have a significantly elevated white cell count. X-ray also did not show any pneumonitis. BRIEF HOSPITAL COURSE: The patient was admitted to the acute care floor at [facility] on 11/06/2019. The patient was started on CIWA and p.r.n. Ativan. The patient did have positive blood cultures; however, this was felt to be a contaminant, as the repeat was negative. The patient's laboratory work remained stable; however, he does have elevated liver enzymes. The patient's electrolytes have been stable. The patient did have 3 separate occasions where he needed Ativan IV for significantly elevated CIWA scores. The patient had issues with nausea and vomiting during his stay; however, this had all resolved at the time of discharge. The patient was noted to have significant sleep apnea according to nursing staff. The patient was restarted on his lisinopril 40 mg daily. Additionally, the patient was also started on Coreg 6.25 mg b.i.d. and also hydrochlorothiazide 25 mg daily as his blood pressure continued to be elevated while admitted. The patient did not have any problems with urination or bowel movement. The patient tolerated his diet without any issues. The patient did not have any focal neurological deficits. The patient did not have any shortness of breath or cough. The patient had denied any chest pain or palpitations. DISCHARGE PHYSICAL EXAMINATION: Vital Signs: Height 5 feet 6 inches, weight 299 pounds, temperature 97.5, pulse 95, blood pressure 130/76, respiratory rate17, oxygen saturation 94% on room air. General Presentation: The patient is in no acute distress. The patient is cooperative. The patient is appropriate. Respiratory: Lungs are clear to auscultation. Respiratory rate is normal. Cardiovascular: Regular rate and rhythm. No murmurs. Gastrointestinal: Abdomen is obese. Abdomen is soft and nontender. Bowel sounds are active x4. Skin: [place], warm, and dry. Skin is intact. No rashes. Neurological: The patient is alert and oriented to person and place, but disoriented to time. No focal neurological deficit. Sensation is intact. DISCHARGE LABORATORY WORK: 1. CBC; white blood cell count 10.8, hemoglobin 17.2, hematocrit 51.6, platelets are 203,000. 2. CMP; sodium is 138, potassium 4.3, chloride is 100, CO2 is 29, anion gap is 13.3, BUN is 24, creatinine 1.2, GFR greater than 60, glucose 107, calcium 9.3, AST is 55, ALT is 86, alkaline phosphatase 93, total protein 8.2, albumin 3.7. DISCHARGE DISPOSITION: Home with family. DISCHARGE MEDICATIONS: 1. Ventolin HFA 2 puffs every 4 hours as needed. 2. Coreg 6.25 mg 1 tablet p.o. twice daily. 3. Folic acid 1 mg 1 tablet p.o. daily. 4. Hydrochlorothiazide 25 mg 1 tablet p.o. daily. 5. Lisinopril 40 mg 1 tablet p.o. daily. 6. Lorazepam 1 mg 1 tablet p.o. every 4 hours as needed. 7. Multivitamin 1 tablet p.o. daily. 8. Ondansetron 4 mg 1 tablet every 6 hours as needed. 9. Thiamine 100 mg 1 tablet p.o. daily. PLAN: The patient will be discharged home today into the care of his mother. I thoroughly and extensively discussed sobriety with the patient and to continue following with the program and his counselor. Prescriptions were given to the patient prior to discharge for new medications. The patient will be on a regular diet. The patient is a full code at the time of discharge. The patient was hemodynamically stable at the time of discharge. The patient was given a written note for his work that excused him from 10/31 through 11/07 due to his hospitalization and needing to set up Alcoholics Anonymous classes and working with his counselor. I would like the patient to follow up with Dr. Piedad Hammond tomorrow, 11/06/2019, in clinic for a followup. My concern, if the patient follows up any later, he may not return to the clinic for a followup and may start using alcohol again. TB: 11/05/2019 17:47:30 MODL: 11/05/2019 19:35:23 /[id number] MTDD
== END 2019-11-05 12:00 | disposition home or self-care (01) | DRG 897 ==
LOC: VM.ED 10:53 → VM.MS 12:31
PROVIDERS: ADMIT Family Medicine; ATTEND Family Medicine
DX: F10.239 Alcohol dependence with withdrawal, unspecified (principal); Z68.42 Body mass index [BMI] 45.0-49.9, adult; F10.21 Alcohol dependence, in remission; J45.40 Moderate persistent asthma, uncomplicated; F41.1 Generalized anxiety disorder; F17.200 Nicotine dependence, unspecified, uncomplicated; G47.30 Sleep apnea, unspecified; E66.01 Morbid (severe) obesity due to excess calories; R79.89 Other specified abnormal findings of blood chemistry; I11.0 Hypertensive heart disease with heart failure; I50.9 Heart failure, unspecified; F32.9 Major depressive disorder, single episode, unspecified; Z79.899 Other long term (current) drug therapy
CPT/HCPCS: 36415; 71045; 71046; 80048; 80053; 80305-QW; 81001; 82977; 83605; 83735; 83880; 84100; 84145; 84484; 85025; 85379; 85610; 86140; 87040; 87077; 87186; 93005; 94640; 96374; 99285-25; A9270-GY; J1650; J1940; J2060; J2930; J3411; J7120; J7613-GY; J7620-GY